=== PATIENT | male | born 1980 | race Caucasian/White ===

== ENCOUNTER 2018-03-18 03:23 | Emergency (ER) | payer OTHER ==
--- NOTE | 2018-03-18 03:44 | ED Physician Documentation ---
General Adult - HISTORIAN Historian: patient, other (EMS) - HPI Stated Complaint: foot pain Chief Complaint: General Adult Additional Information: Sitting in [facility] for a lengthy period of time. [facility] said to have called police who called EMS. Pt says he rolled left foot 5, 7, 10 days ago. No treatment attempted. Then says he rolled it in parade (yesterday). Refuses x-ray because he "can't." Wants a sandwich and a drink. Says he is homeless and doesn't take seroquel and depakote any more. Loud. "The president is in town and he has been gunning for us." Refuses to stay in room. Loud. Talks of events in the . Police summoned. - ROS CONST: no problems - PAST HX Past History: other (psych) Surgeries/Procedures: none - SOCIAL HX Smoking History: non-smoker - FAMILY HX Family History: No (no signif) - REVIEWED ASSESSMENTS Nursing Assessment Reviewed: Yes Vitals Reviewed: Yes Progress - Progress Progress: 0350, [employer] police x3 with patient. Single highway patrolman arrives. 0400, Escorted out of building by police. General Adult Physical Exam - PHYSICAL EXAM GENERAL APPEARANCE: no distress (smiling, happy at times) EENT: eye inspection normal, ENT inspection normal NECK: supple RESPIRATORY: no resp distress BACK: normal inspection SKIN: warm/dry, normal color EXTREMITIES: other (left foot w/o swelling or ecchymosis. Mild pink coloration at arch. Full ROM. Normal gait and stance) NEURO: CN's nml as tested, motor nml, sensation nml Discharge Clincal Impression: Foot pain, left Referrals: Primary Doctor,No [Primary Care Provider] - 2 Days Condition: Fair Disposition: AGAINST MEDICAL ADVICE Decision to Admit: NO Decision Time: 04:00
== END 2018-03-18 03:57 | disposition left against medical advice (07) ==
LOC: ED 03:23
DX: M79.672 Pain in left foot (principal); Z53.9 Procedure and treatment not carried out, unspecified reason
CPT/HCPCS: 99282